=== PATIENT | male | born 1995 | race Hispanic/Latino ===

== ENCOUNTER 2016-07-12 17:07 | Emergency (ER) | payer OTHER ==
[~2016-07-12 17:07] MED LIST: HYDR50CA PO; IBUP800T28 PO
[2016-07-12 17:15] VITALS: BP 119/78; PULSE 80; RESP 16; O2SAT 96
--- NOTE | 2016-07-12 19:08 | ED.REPORT ---
HPI-Headache Date of Service Jul 12, 2016 ED Provider: Charles Quarles PA-C Otherwise healthy 21-year-old male presents with a chief complaint headache. He states the headache began insidiously yesterday, and associated with an aggravated by a dry cough that began about the same time. He denies other symptoms including fever, malaise, myalgias, abdominal pain and vomiting, wheezing, shortness of breath, nasal congestion, rhinorrhea. Denies sudden onset. He does report trivial trauma prior to onset of headache in which he bumped his head on the underside of a shelf while picking up from the floor work. He did not lose consciousness or vomit. Nursing Notes Stated Complaint: HEADACHE Chief Complaint: Neuro Symptoms/ Deficits Nursing Notes Reviewed: Yes Allergies: Coded Allergies: No Known Allergies (Unverified , 10/31/15) Scheduled Benzonatate (Benzonatate) 100 Mg Capsule 100 MG PO TID Scheduled PRN Hydroxyzine Pamoate (Vistaril) 50 Mg Capsule 50 MG PO HS PRN PRN For Insomnia Hydroxyzine Pamoate (Vistaril) 50 Mg Capsule 50 MG PO HS PRN PRN For Insomnia Ibuprofen (Ibuprofen) 800 Mg Tablet 800 MG PO TID PRN PRN For Pain General Time Seen by MD: 17:46 Chief Complaint Headache Sudden in Onset?: No Past Medical History Past Medical History Denies Past Surgical History denies Smoking History Never Smoker Social History Alcohol Use: Denies alcohol use Drug Use: Denies drug use Other Social History: Lives with parents Review of Systems Review of Systems Note: Negative unless stated otherwise in history of present illness Physical Exam General: Well appearing, well developed, well nourished, no acute distress. Head: Atraumatic, normocephalic. No mastoid tenderness. Eyes: No scleral icterus or injection. No discharge. PERRL. Vision grossly intact. Ears: Pinna and tragus nontender with manipulation. External auditory canal patent, atraumatic and without discharge. Tympanic membrane blackwell, shiny and translucent without fluid, bulging, retraction or perforation. Hearing grossly intact. Nose: Symmetrical, nares patent without discharge. No frontal or maxillary sinus tenderness. Mouth/pharynx: normal dentition, mucus membranes moist. Tonsils 2+ and symmetrical, uvula midline. Pharynx injected, no cobblestoning or discharge. Voice clear. Neck: No tenderness or lymphadenopathy. Trachea midline. Respiratory: Regular rate and rhythm. Breath sounds present, clear to auscultation and equal bilaterally. No respiratory distress. No increased work of breathing, speaks in complete sentences. Cardiovascular: Regular rate and rhythm, without murmur, gallop or rub. No pedal edema. Skin: Warm and dry. Neurological: Normal gait, heel walk, toe walk, heel to toe walk. Normal Romberg, negative pronator drift. Cranial nerves: Vision grossly intact, PERRL, EOMI. Facial motion symmetrical. Voice clear and fluent, no drooling/pooling of saliva, uvula rises midline. Psychological: Alert and oriented. Speech appropriate, linear and logical. Behavior appropriate. Initial Vital Signs Vital Signs (First) Date Time Temp Pulse Resp B/P Pulse Ox O2 Delivery O2 Flow Rate FiO2 07/12/16 17:15 36.9 80 16 119/78 96 Room Air Initial VS: Reviewed, Vital signs normal Re-Eval/Medical Decision Med Decision/Clinical Course Otherwise healthy 21-year-old presents with 2 day history of insidious onset headache associated and aggravated by a dry cough. He does admit to a trivial trauma prior to onset in which he struck his head on the underside of a shelf at work. This seems unlikely mechanism for severe injury. I also do not suspect a subarachnoid hemorrhage. It is more likely an upper respiratory infection. I offered analgesia and IV fluids in the department which the patient declined. I also discussed possibility of testing for influenza the patient also declined. Discharged to home with prescription for Tessalon Perles , instructions for [id number] analgesia, rest, hydration and a primary care referral. gave return precautions. Patient understands and is comfortable with the plan. Discharge & Departure Impression: Primary Impression: Headache Headache type: unspecified Headache chronicity pattern: unspecified pattern Intractability: not intractable Qualified Code: R51 - Headache Disposition: Home Discharge Condition All VS Reviewed: Yes Condition: Stable Patient Instructions: Acute Headache (ED) Additional Instructions: Evaluation for a headache in the emergency department. History and physical are reassuring this is unlikely to be a dangerous headache. I think is more likely to be headache associated with an upper respiratory infection. I suggested rest and hydration.The pain is best treated with 400 mg of ibuprofen ( Advil, Motrin) every 6 hours, or 1000 mg of acetaminophen (Tylenol) every 6 hours. These drugs can be taken at the same time for more severe pain. I will also prescribe Tessalon Perles to reduce the cough. I will give you a referral for primary care follow-up. Please follow up with them if symptoms do not resolve in the next 3 or 4 days. Return to emergency department for new or worsening symptoms including a sudden change or headache, worsening headache, neurological changes such as weakness/numbness on the changes in her vision. Referrals: [facility] (PC[facility]) EDSupervising Provider for APC: Diann Travis MD copies to: [facility] Charles Quarles PA-C Jul 12, 2016 19:08
[2016-07-12] MEDS ORDERED: BENZ100C8 PO (19:10)
[2016-07-12 19:46] VITALS: PULSE 65; RESP 24; O2SAT 98
== END 2016-07-12 19:48 | disposition home or self-care (01) ==
LOC: SED 17:07
DX: R51 Headache (principal)